=== PATIENT | female | born 1960 | race Caucasian/White ===

== ENCOUNTER 2022-05-05 08:24 | Emergency (ER) | payer MEDICAID, OTHER ==
[~2022-05-05] VITALS: Ht 152.4 cm; Wt 95.3 kg
[2022-05-05 08:28] VITALS: BP_SYST 145
[2022-05-05] MEDS ORDERED: methocarbamoL 500 MG TABLET PO ONE (08:45)
[2022-05-05] MEDS ORDERED: LIDOCAINE PATCH 5% 1 EA TP ONE (08:45)
[2022-05-05] MEDS ORDERED: KETOROLAC TROMETHAMINE 15 MG VIAL IM ONE (08:45)
[2022-05-05] MEDS ORDERED: HYDROcodone/ACETAMIN 5-325 MG TAB (NORCO/ VICODIN) PO ONE (08:45)
[2022-05-05] MEDS ORDERED: predniSONE 20 MG TABLET PO ONE (08:45)
--- NOTE | 2022-05-05 08:45 | NUR ---
ER at bedside examining patient.
--- NOTE | 2022-05-05 09:00 | NUR ---
ER at bedside examining patient.
--- NOTE | 2022-05-05 09:05 | NUR ---
Patient transported to radiology via gurney, accompanied by josé.
--- NOTE | 2022-05-05 09:45 | NUR ---
70-year-old female with history of hypertension, diabetes, hyperlipidemia, presents with acute on chronic right-sided lumbar back pain. Patient states that she flared up her back pain 3 days ago. Nontraumatic. States that she has radiation of the pain down the back of her right leg. She denies any urinary or bowel incontinence. She was seen at an outside hospital yesterday, where she was provided with pain medication and discharged home. He denies any recent fevers or illnesses.
--- NOTE | 2022-05-05 10:07 | NUR ---
Pt resting in [place] in [id number] pt denies complaints at this time. NAD, skin intact, denies trauma.
--- NOTE | 2022-05-05 11:30 | NUR ---
PT ASSISTED TO RESTROOM WITH ASSISTANCE.
[2022-05-05] MEDS ORDERED: METH-634 PO (11:37)
[2022-05-05] MEDS ORDERED: DICL100G33 TP (11:37)
[2022-05-05] MEDS ORDERED: LIDO1ADH71 TD (11:37)
[2022-05-05] MEDS ORDERED: PRED20TA PO (11:38)
--- NOTE | 2022-05-05 12:00 | NUR ---
Patient given written and verbal discharge instructions and verbalizes understanding. ER MD discussed with patient the results and treatment provided. Patient in stable condition. ID arm band removed. Opportunity for questions provided and answered. Medication side effect fact sheet provided.
[2022-05-05 17:47] VITALS: BP_SYST 145
== END 2022-05-05 17:47 | disposition home or self-care (01) ==
LOC: SED 08:24
DX: M54.50 Low back pain, unspecified (principal); M79.661 Pain in right lower leg; E11.9 Type 2 diabetes mellitus without complications; I10 Essential (primary) hypertension; E78.5 Hyperlipidemia, unspecified; Z79.899 Other long term (current) drug therapy
CPT/HCPCS: 99284; 73502; 96372; J7512; J1885